=== PATIENT | male | born 1975 | race Caucasian/White ===

== ENCOUNTER 2016-06-26 15:10 | Emergency (ER) | payer MEDICAID ==
[~2016-06-26] VITALS: Ht 165.1 cm; Wt 90.7 kg
[~2016-06-26 15:10] MED LIST: DICLOFENAC 50MG50 MG PO; NAPROSYN500 M1 PO; NOMEDS XX
[2016-06-26] MEDS ORDERED: NAPROSYN500 M1 PO (16:00)
[2016-06-26] MEDS ORDERED: BACTRIM DS TAB1 EACH PO (16:00)
--- NOTE | 2016-06-26 16:01 | Urgent Treatment Center Report ---
History of Present Issue Date/Time Seen by Provider 06/26/16 1554 Visit Reason Pt arrived:Walked Presenting Problem:PAIN L KNEE , WITH SWELLING NO INJURY Location if Accident: Onset of symptoms date/time:06/25/1603/03/1500 or onset unknown for: Have you (or family members/close friends) recently traveled outside the [place]? N If Yes, where/when: Have you had exposure to infectious disease within the past month? TB? Other? Specify: Source patient, RN notes reviewed Exam Limitations no limitations Comment Left knee pain and swelling since yesterday afternoon. Denies any injury. 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 Woke up this morning with pain in knee and it feels tight from the swelling. No fever. No vomiting or diarrhea. No history of gout. ALLERGIES Coded Allergies: No Known Allergies (09/02/15) Home Medications Reported Medications No Home Medications (NO HOME MEDICATIONS) 1 EACH XX ONCE History Medical History General CAD? No Angina: No IA: No Hypertension? No Hyperlipidemia? No CHF? No DVT? No PE? No COPD? No Asthma? No Anemia? No GERD? No Gastric ulcers? No GI Bleed? No Hernia? No Thyroid Problems? No Hypothyroidism? No CVA? No Seizures? No Diabetes? No Renal Insuffiency? No UTI? No Stones? No GB Disease: No Nephritic Syndrome? No Asplenia? No Hepatitis? No Sickle Cell Disease? No Arthritis? No Migraines? No Cataracts? No Glaucoma? No MRSA? No HIV? No TB? No Anxiety? No Depression? No Cancer? No More? No Immunization HX DT/Tetanus Unknown Surgical Hx Previous Surgery?N Social History Smoking Hx Smoker: Current Every Day Smoker Tobacco: Yes Type Cigarettes Packs/day < 1 Pack Alcohol Alcohol: No Review of Systems All Other Systems Reviewed and Negative Musculoskeletal see HPI, joint pain Physical Exam Vital Signs Vital Signs Date Time Temp Pulse Resp B/P Pulse O2 O2 Flow FiO2 Ox Delivery Rate 06/26 1534 97.9 83 20 185/101 98 06/26 1524 97.9 83 20 185/101 98 General Appearance normal appearance, no apparent distress Respiratory Status No: respiratory distress, trachea midline, chest symmetrical. Lung Sounds bilateral: normal breath sounds, lungs clear. Cardiovascular normal exam, regular rate/rhythm, no peripheral edema, no gallop, no JVD, no murmur, no rub Peripheral Pulses Pulses normal Yes Extremities no calf tenderness, no pedal edema, inflammation, swelling, of left knee Neurologic alert, normal exam, oriented x 3 Medical Decision Making LABS/Meds/Orders Pt receiving controlled substance in ED? No Results/Orders Orders Procedure Date/time Status KNEE-3 VIEWS-LT 06/26 1536 Active XRAY/CT/US XRAY/CT/US XRAY knee XR interpretation by reviewed by me Xray Results no fracture seen Comment Radiology will give official report tomorrow Departure Departure Time of Disposition 1557 Disposition DC Home or Self Care(routine) Clinical Impression Primary Impression: Knee pain, left Condition STABLE Referrals Albertina Agarwal (Family): 3 Days-Call Office Patient Instructions DI for Joint Pain Discharge Counseling Counseled pt/family regarding diagnosis, test results, medications/RX, follow up needs Comment F/U with PCP for official Xray report and particularly if not improving - may need additional testing Prescriptions Current Visit Scripts Naproxen (Naprosyn 500MG Tab) 500 MG PO BID #20 TAB Sulfamethoxazole/Trimethoprim (Bactrim Ds Tablet) 1 EACH PO BID #20 TAB at 1601
[2016-06-26 16:11] VITALS: BP 185/101
--- NOTE | 2016-06-26 19:27 | RADIOLOGY REPORT PS360 ---
KNEE-3 VIEWS-LT COMPARISON: None HISTORY: Left knee pain and swelling TECHNIQUE: AP lateral and oblique views FINDINGS: The femoral condyles tibial plateau and fibular head appear normal. 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 The patella is intact and I see no definite effusion. IMPRESSION: Negative for acute pathology
== END 2016-06-26 16:11 | disposition home or self-care (01) ==
LOC: ER 15:10 → UTC 15:29 → ER 15:29 → UTC 16:11
DX: M25.562 Pain in left knee (principal); Z72.0 Tobacco use